=== PATIENT | male | born 1990 | race Asian ===

== ENCOUNTER 2020-10-30 23:49 | Observation (INO) | payer SELFPAY ==
[~2020-10-30] VITALS: Ht 162.6 cm; Wt 54.0 kg
[2020-10-31] VITALS (12 sets, daily range): BP systolic 95–122; BP diastolic 54–74; PULSE 57–71; TEMP 97.7–98.5
[2020-10-31 00:12] LABS: BASO # 0.1 (0.0-0.2); BASO % 0.5 % (0.0-2.0); EOS # 0.2 (0.0-0.7); EOS % 2.1 % (0-4.0); GRAN # 5.2 (1.4-6.5); GRAN % 56.7 % (42.2-75.2); HEMATOCRIT 45.6 % (42.0-52.0); HEMOGLOBIN 15.7 g/dl (13.5-18.0); LYMPH # 3.1 (1.2-3.4); LYMPH % 33.2 % (20.0-51.0); MEAN CELL VOLUME 85 fl (80.0-100.0); MEAN CORPUSCULAR HEMOGLOBIN 29 pg (27.0-31.0); MEAN CORPUSCULAR HGB CONC 34 g/dl (33.0-37.0); MEAN PLATELET VOLUME 9.8 fl (7.4-10.4); MONO # 0.7 (0.1-0.6); MONO % 7.2 % (1.7-9.3); PLATELET COUNT 319 K/mm3 (130-400); RED BLOOD COUNT 5.34 M/mm3 (4.20-5.60)
[2020-10-31 00:27] LABS: COLLECTION METHOD CLEAN CATCH
[2020-10-31 00:35] LABS: MUCOUS Present /lpf; PH 6 (5-8); SQUAMOUS EPITHELIAL None Seen /hpf; URINE APPEARANCE Clear; URINE BACTERIA None Seen /hpf; URINE BILIRUBIN Negative (NEGATIVE); URINE BLOOD Negative (NEGATIVE); URINE COLOR Yellow; URINE GLUCOSE Negative (NEGATIVE); URINE KETONE Negative (NEGATIVE); URINE LEUKOCYTE ESTERASE Negative (NEGATIVE); URINE NITRATE Negative (NEGATIVE); URINE PROTEIN(semi-quant) Negative (NEGATIVE); URINE RBC None Seen /hpf; URINE UROBILINOGEN Negative (NEGATIVE)
[2020-10-31 00:37] LABS: ALANINE AMINOTRANSFERASE 20 U/L (4-49); ALBUMIN 4.4 gm/dL (3.5-5.0); ALKALINE PHOSPHATASE 51 U/L (50-136); ANION GAP 9 mmol/L (7-16); AST,SGOT 24 U/L (15-37); BILIRUBIN,TOTAL 0.2 mg/dL (0.0-1.0); BLOOD UREA NITROGEN 21 mg/dL (9-20); C-REACTIVE PROTEIN < 0.5 mg/dL (0.0-0.9); CALCIUM 9.2 mg/dL (8.4-10.2); CARBON DIOXIDE 28 mmol/L (22-30); CHLORIDE 105 mmol/L (98-107); CREATININE, serum 0.96 (0.66-1.25); GLUCOSE 99 mg/dL (74-106); LIPASE 84 U/L (23-300); SODIUM 142 mmol/L (137-145); TOTAL PROTEIN 7.8 gm/dL (6.4-8.2)
--- NOTE | 2020-10-31 04:04 | NUR ---
Pt. arrived to the floor via wheelchair. Pt. able to ambulate to the bed independently. Pt. is A&OX3, assessment complete. IV to rt. ac patent, Iv fluids infusing per orders. Pt. rates pain at an 8, gave pain meds per orders. Pt. denies further needs.
--- NOTE | 2020-10-31 06:40 | NUR ---
Lying in bed with eyes open. Alert and oriented x4. Rates pain 3-4/10 in right lower abd, describes as sore. Says the pain is toelrable at this time and denies need for pain medication. Patient is aware that he is NPO for surgery today. Denies additional needs or concerns at this time.
[2020-10-31 07:51] LABS: BASO % 0.3 % (0.0-2.0); EOS % 0.3 % (0-4.0); GRAN # 9.9 (1.4-6.5); GRAN % 75.5 % (42.2-75.2); HEMATOCRIT 44.9 % (42.0-52.0); HEMOGLOBIN 15.2 g/dl (13.5-18.0); LYMPH # 2.1 (1.2-3.4); LYMPH % 16.2 % (20.0-51.0); MEAN CELL VOLUME 87 fl (80.0-100.0); MEAN CORPUSCULAR HEMOGLOBIN 29 pg (27.0-31.0); MEAN CORPUSCULAR HGB CONC 34 g/dl (33.0-37.0); MONO % 7.3 % (1.7-9.3); PLATELET COUNT 297 K/mm3 (130-400); RED BLOOD COUNT 5.19 M/mm3 (4.20-5.60); REDCELL DISTRIBUTION WIDTH-CV 13.2 % (11.5-14.5)
--- NOTE | 2020-10-31 09:03 | NUR ---
Patient aware that the plan is to have surgery this afternoon. Discuss with the patient doing surgical scrub shower at this time. Patient agrees and gets up to shower at this time. Patient will use call light when done so that he can be connected to IV antibiotics. Friends in room with the patient. Denies additional needs at this time.
--- NOTE | 2020-10-31 09:18 | NUR ---
Patient done in shower. Connect to Zosyn as prescribed. Review consent with the patient and patient denies questions and signs consent. Will place in chart. Denies additional needs or concerns at this time.
--- NOTE | 2020-10-31 11:11 | NUR ---
Lying in bed with eyes closed. Opens eyes when enter room. Patient says that he is doing well at this time just is tired and trying to get sleep. Minimal pain, does not need pain medication. Friend at bedside. No further needs at this time.
--- NOTE | 2020-10-31 12:13 | NUR ---
Jesus with surgery here to take patient to surgery via bed.
--- NOTE | 2020-10-31 12:25 | NUR ---
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 No needs right now.
--- NOTE | 2020-10-31 14:13 | NUR ---
Patient to room via bed from PACU. Alert and oriented x4. Denies pain, verbalizes that he feels much better. Abd lap sites x3 with bandaids CDI. Provide water. Patient will try jello at this time. Friend in room with the patient. Denies further needs.
--- NOTE | 2020-10-31 16:04 | NUR ---
Resting in bed with eyes closed. Opens eyes when enter room. Patient says he is doing okay and denies needs. Friend in room with the patient.
--- NOTE | 2020-10-31 17:37 | NUR ---
Lying in bed with eyes open. Denies pain. Assist patient in ordering dinner. Denies additional needs at this time.
--- NOTE | 2020-10-31 21:47 | NUR ---
Patient laying in bed and watching TV upon enter the room. Patient A/O x4. Patient denies SOB/dyspnea, N/V, or dizziness. Patient denies any pain or discomfort while at rest. Patient reports minor pain with physical exertion. IV ABX is currently running via right AC. Assisted patient to get up and ambulated in the hallway. Patient tolerated ambulation well. Call light within reach. Patient denies any needs at this time.
[2020-11-01 00:29] VITALS: BP 102/55; PULSE 75; TEMP 98.9
[2020-11-01 04:31] VITALS: BP 113/60; PULSE 72; TEMP 98.9
--- NOTE | 2020-11-01 05:10 | NUR ---
Patient denies need for pain meds throughout the night. No acute distress noted. VS remains stable. Walked to the bathroom independently and voided x1. Tolerating PO food well. Call light within reach. Denies any needs at this time.
--- NOTE | 2020-11-01 06:47 | NUR ---
Lying in bed with eyes open. Alert and oriented x4. Minimal pain in abd that is tolerable. Lap sites x3 on abd with bandaids CDI. Denies nausea. Discuss with the patient we will wait on provider to see him and at that time discuss discharge today. Patient verbalizes understanding and denies additional needs.
[2020-11-01 07:50] VITALS: BP 110/73; PULSE 66; TEMP 98.6
--- NOTE | 2020-11-01 11:11 | NUR ---
Plans to return home to [facility]. SW met with patient about DC plan. Patient reports that he resides in [place]. Patien indicated that he will stay with a friend one more day and then drive home from here. Patient reports that he does not have a PCP or a regular pharmacy. Patient indicated that his friend Evelina is his EMR contact . Patient reports that he may need support with medications if he is sent home with some. Patient was educated on setting up care with local community health services. May need medication Voucher. Will follow.
--- NOTE | 2020-11-01 12:21 | NUR ---
Sitting up in bed. Denies pain. Review all discharge instructions with the patient. Denies questions and signs all discharge paperwork. Patient will get dressed at this time and let his ride know that he is ready for discharge. Patient will call nursing staff when his ride is at ER entrance to pick him up. Denies additional needs at this time.
--- NOTE | 2020-11-01 13:52 | NUR ---
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 Patient assisted out ambulatory with all belongings by GALA Chu.
== END 2020-11-01 13:52 | disposition home or self-care (01) ==
LOC: COL.ER 23:49 → SURG 10-31 02:23
PROVIDERS: Nurse Practitioner; ADMIT Surgery
DX: K35.80 Unspecified acute appendicitis (principal); Z87.891 Personal history of nicotine dependence
CPT/HCPCS: G0378; J1170; J1885; J2270; J2405; J2543; J2704; J3010; J7030; J7120; Q9967